=== PATIENT | male | born 1980 | race Caucasian/White ===

== ENCOUNTER 2018-08-31 19:47 | Emergency (ER) | payer BC, OTHER ==
[2018-08-31 20:02] VITALS: BP 131/82
[2018-08-31 20:27] LABS: Influenza A Molecular POSITIVE (Negative)
--- NOTE | 2018-08-31 20:35 | UC ---
Throat Pain/Nasal Gregory HPI - HPI Summary HPI Summary: Patient presents to urgent care with 14 days of body aches, fevers, congestion, cough with green sputum. 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 Patient has not taken anything first fever or symptoms because he thought his body needed a "fight" patient's son was diagnosed with flu last week. Patient states he's been very fatigued. Patient states he is here because the coughing is getting worse. Patient without any nausea vomiting. Decreased appetite. No diarrhea. No rash. Patient's medications reviewed this visit. Patient is not immunocompromised. - History of Current Complaint Chief Complaint: UCRespiratory Stated Complaint: CONGESTED,FEVER Time Seen by Provider: 08/31/18 20:26 Hx Obtained From: Patient Severity: Mild Pain Intensity: 0 - Allergies/Home Medications Allergies/Adverse Reactions: Allergies Allergy/AdvReac Type Severity Reaction Status Date / Time ENVIRONMENTAL Allergy Unknown Uncoded 08/31/18 20:04 Reaction Details Home Medications: Home Medications Fluticasone NASAL SPRAY 50MCG* [Flonase NASAL SPRAY 50MCG*] 1 spray BOTH NARES DAILY PRN 08/31/18 [History Confirmed 08/31/18] PMH/Surg Hx/FS Hx/Imm Hx Previously Healthy: Yes - Surgical History Surgical History: Yes Surgery Procedure, Year, and Place: APPENDECTOMY; WISDOM TEETH; VASECTOMY; deviated septum - Family History Known Family History: Positive: Other - son with + flu - Social History Occupation: Employed Full-time Lives: With Family Alcohol Use: Rare Substance Use Type: Marijuana Substance Use Comment - Amount & Last Used: occasional Smoking Status (MU): Heavy Every Day Tobacco Smoker Review of Systems All Other Systems Reviewed And Are Negative: Yes Constitutional: Positive: Fever, Fatigue Skin: Positive: Negative Eyes: Positive: Negative ENT: Positive: Nasal Discharge, Sinus Congestion, Sinus Pain/Tenderness Respiratory: Positive: Cough, Other - wheeze Physical Exam - Summary Physical Exam Summary: Vital Signs Reviewed: Yes A+Ox3, no distress, tired appearing Eyes: Conjunctiva Clear, ALONZO. EOM intact and full ENT: Hearing grossly normal TM x 2 clear, turbinates inflammed and boggy + PND , mmoist, uvula midline, no exudate, no erythema Neck: Positive: Supple Respiratory: Positive: No respiratory distress, No accessory muscle use + diffuse wheeze, coarse cough Cardiovascular: RRR nl s1, s2 no m/r CBT <2 sec abd soft + BS no guarding, no rebound Musculoskeletal Exam: LOVELACE x 4 without difficulty Strength Intact, ROM Intact Neurological: Positive: Alert, + sensation throughout Psychological: Positive: Normal Response To Family Skin: Positive: no rash, no ecchymosis Triage Information Reviewed: Yes Vital Signs: Initial Vital Signs Temp 99.0 F 08/31/18 19:57 Pulse 86 08/31/18 19:57 Resp 18 08/31/18 19:57 BP 131/82 08/31/18 19:57 Pulse Ox 97 08/31/18 19:57 Re-Evaluation - Re-Evaluation First Eval Change: Improved - Pt lung sounds improed following neb feels better will start augmentin pt has nebulizer machine at home - gave meds and tubing work nte Throat Pain/Nasal Course/Dx - Course Course Of Treatment: Patient presents to urgent care with 14 days of progressive cough congestion and wheeze. Patient's on diagnosed with influenza. On exam vital signs are stable. Patient tired appearing with diffuse rhonchi and coarse cough. We'll give patient a nebulizer. Patient out of window for for Tamiflu. Concern the patient may have a developing bronchitis or pneumonia given his extensive history of smoking Will start patient on antibiotics. Discussed with patient secretion precaution, humidified air. Motrin Tylenol. Patient comfortable agreement with plan we'll give a DuoNeb. Reassess - Differential Dx/Diagnosis Provider Diagnosis: Acute bronchitis, Influenza A Discharge - Sign-Out/Discharge Documenting (check all that apply): Patient Departure All imaging exams completed and their final reports reviewed: No Studies - Discharge Plan Condition: Stable Disposition: HOME Prescriptions: Albuterol 2.5MG/3ML (0.083%)* [Ventolin 2.5 MG/3 ML NEB.ANNE*] 2.5 mg INH Q4H # 30 neb.anne Amoxicillin/Clavulanate TAB* [Augmentin TAB 875*] 875 mg PO BID #19 tab Patient Education Materials: Influenza (ED), Acute Bronchitis (ED) Forms: *Gen. Provider Communication, *Work Release Referrals: No Primary Care Phys,NOPCP [Primary Care Provider] - Additional Instructions: - Stay well hydrated. Drink plenty of non-alcoholic, non-caffinated beverages. - Alternate ibuprofen (Advil, Motrin) 600mg and Tylenol every 3 hours for pain or fever. Take with food. Do NOT take for more than 4-5 days. - These infections are spread by secretions - do NOT share eating or drinking utensils - clean items you share with other people such as cell phones, computer mouse, TV remote, computer tablets,etc. Once you have been on antibiotics for 2 days, change your toothbrush and your pillowcase. - get plenty of restful sleep - humidify the air in the room where you sleep - boil water, run a hot steam shower, vaporizer, cups of water by heat register - okay to take over the counter decongestant and cough medication - use the nebulizer every 4 hours today and tomorrow, then as needed - work to decrease cigarette smoke - contact your doctor or return with questions or concerns - Billing Disposition and Condition Condition: STABLE Disposition: Home
[2018-08-31] MEDS ORDERED: Albuterol/Ipratropium NEB.SOL* Albuterol 2.5 MG/Ipratropium 0.5 MG 3 ML INH ONE (20:43)
[2018-08-31] MEDS ORDERED: Acetaminophen TAB* 325 MG PO ONE (20:43)
[2018-08-31] MEDS ORDERED: Amoxicillin/Clavulanate TAB* 875 MG PO ONE (21:01)
[2018-08-31] MEDS ORDERED: Albuterol 2.5 MG/3 ML NEB.SOL* (0.083%) INH ONE (21:02)
== END 2018-08-31 21:00 | disposition home or self-care (01) ==
LOC: UCEAST 19:47
DX: J10.1 Influenza due to other identified influenza virus with other respiratory manifestations (principal); J20.9 Acute bronchitis, unspecified; F17.200 Nicotine dependence, unspecified, uncomplicated; Z91.09 Other allergy status, other than to drugs and biological substances
CPT/HCPCS: 99213; A9270-GY; G0463

== ENCOUNTER 2018-09-26 13:16 | Emergency (ER) | payer BC ==
[2018-09-26] MEDS ORDERED: Tetan/Diph/Pertus SYR(Tdap)* 0.5 ML SYR(BOOSTRIX) use SYR IM ONE (13:30)
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
[2018-09-26] MEDS ORDERED: Tetracaine 0.5% OPTH.SOL 15ML* BTL BOTH EYES ONE (14:07)
[2018-09-26] MEDS ORDERED: Tetracaine 0.5% OPTH.SOL 4 ML* 1 DROP BTL ONE (14:09)
[2018-09-26 14:39] VITALS: BP 130/86
== END 2018-09-26 14:37 | disposition short-term general hospital (02) ==
LOC: ED 13:16
DX: T26.12XA Burn of cornea and conjunctival sac, left eye, initial encounter (principal); T26.11XA Burn of cornea and conjunctival sac, right eye, initial encounter; X08.8XXA Exposure to other specified smoke, fire and flames, initial encounter; Y92.9 Unspecified place or not applicable; Z23 Encounter for immunization; Z91.048 Other nonmedicinal substance allergy status; F17.200 Nicotine dependence, unspecified, uncomplicated
CPT/HCPCS: 90471; 90715; 99284; A9270-GY

== ENCOUNTER 2019-04-30 21:03 | Emergency (ER) | payer BC, OTHER ==
[2019-04-30 21:25] VITALS: BP 149/40
[2019-04-30] MEDS ORDERED: Cephalexin CAP* 500 MG PO ONE (21:41)
--- NOTE | 2019-04-30 21:41 | UC ---
Throat Pain/Nasal Gregory HPI - HPI Summary HPI Summary: The patient is a 38-year-old male with severe sore throat fever and chills 2 days. He had mild symptoms for a few days preceding the onset of his severe symptoms. He states he gets strep throat often. He is currently staying with his mom who is on chemotherapy. He has had no nausea vomiting or diarrhea. He denies any headache or myalgias. - History of Current Complaint Chief Complaint: UCGeneralIllness Stated Complaint: SORE THROAT Time Seen by Provider: 04/30/19 21:04 Hx Obtained From: Patient Onset/Duration: Gradual Onset, Lasting Hours Severity: Moderate Pain Intensity: 6 Pain Scale Used: 0-10 Numeric Cough: None - Allergies/Home Medications Allergies/Adverse Reactions: Allergies Allergy/AdvReac Type Severity Reaction Status Date / Time ENVIRONMENTAL Allergy Unknown Uncoded 09/26/18 14:04 Reaction Details PMH/Surg Hx/FS Hx/Imm Hx Previously Healthy: Yes - Surgical History Surgical History: Yes Surgery Procedure, Year, and Place: APPENDECTOMY; WISDOM TEETH; VASECTOMY; deviated septum - Family History Known Family History: Positive: Cardiac Disease, Hypertension, Other - son with + flu - Social History Alcohol Use: Occasionally Substance Use Type: Marijuana Substance Use Comment - Amount & Last Used: occasional Smoking Status (MU): Heavy Every Day Tobacco Smoker Review of Systems All Other Systems Reviewed And Are Negative: Yes Constitutional: Positive: Fever, Chills Skin: Positive: Negative Eyes: Positive: Negative ENT: Positive: Sore Throat Respiratory: Positive: Negative Cardiovascular: Positive: Negative Gastrointestinal: Positive: Negative Genitourinary: Positive: Negative Motor: Positive: Negative Neurovascular: Positive: Negative Musculoskeletal: Positive: Negative Neurological: Positive: Negative Psychological: Positive: Negative Physical Exam Triage Information Reviewed: Yes Appearance: Well-Appearing, No Pain Distress, Well-Nourished Vital Signs: Initial Vital Signs Temp 99.8 F 04/30/19 21:16 Pulse 104 04/30/19 21:16 Resp 18 04/30/19 21:16 BP 149/40 04/30/19 21:16 Pulse Ox 99 04/30/19 21:16 Vital Signs Reviewed: Yes Eyes: Positive: Conjunctiva Clear ENT: Positive: Hearing grossly normal, Pharyngeal erythema, TMs normal, Tonsillar swelling. Negative: Tonsillar exudate Neck: Positive: Supple, Nontender, Enlarged Nodes @ - L>R ant cervical Respiratory: Positive: Lungs clear, Normal breath sounds, No respiratory distress, No accessory muscle use Cardiovascular: Positive: RRR, No Murmur Musculoskeletal: Positive: ROM Intact, No Edema Neurological: Positive: Alert Psychological Exam: Normal Skin Exam: Normal Throat Pain/Nasal Course/Dx - Course Course Of Treatment: strep (-) - Differential Dx/Diagnosis Provider Diagnosis: Acute tonsillitis, Elevated BP without diagnosis of hypertension Discharge ED - Sign-Out/Discharge Documenting (check all that apply): Patient Departure All imaging exams completed and their final reports reviewed: No Studies - Discharge Plan Condition: Stable Disposition: HOME Prescriptions: Cephalexin CAP* [Keflex CAP*] 500 mg PO BID #14 cap Patient Education Materials: Tonsillitis (ED) Referrals: [facility] [place] [facility] [Outside] (BP recheck in 2-12 weeks) Additional Instructions: blood work pending recheck for new or worsening symptoms or if not better in 4 days - Billing Disposition and Condition Condition: STABLE Disposition: Home
[2019-05-01 11:20] LABS: Hematocrit 46 % (42-52); Mean Corpuscular HGB Conc 34 g/dL (31-36); Mean Corpuscular Hemoglobin 32 pg (27-31); Mean Corpuscular Volume 92 fL (80-94); Mean Platelet Volume 7.9 fL (7.4-10.4); Platelet Count 373 10^3/uL (150-450); Red Blood Count 5.06 10^6 /uL (4.18-5.48); Red Cell Distribution Width 13 % (10-15)
[2019-05-01 11:55] LABS: ABS Basophils 0.1 10^3/ul (0-0.2); ABS Eosinophils 0.2 10^3/ul (0-0.6); ABS Lymphocytes 1.7 10^3/ul (1.0-4.8); ABS Monocytes 1.7 10^3/ul (0-0.8); ABS Neutrophils 13.2 10^3/ul (1.5-7.7); Eosinophil % 1.1 %; Lymphocyte % 10.3 %
--- NOTE | 2019-05-01 15:42 | UC ---
- Progress Note Progress Note: Due to elevated WBC, nurse to call patient and see if symptoms improving. If no improvement, should go to ER. -Fior Haro PAC Course/Dx - Diagnoses Provider Diagnoses: Acute tonsillitis, Elevated BP without diagnosis of hypertension Discharge ED - Sign-Out/Discharge Documenting (check all that apply): Patient Departure All imaging exams completed and their final reports reviewed: No Studies - Discharge Plan Condition: Stable Disposition: HOME Prescriptions: Cephalexin CAP* [Keflex CAP*] 500 mg PO BID #14 cap Patient Education Materials: Tonsillitis (ED) Referrals: [facility] [place] [facility] [Outside] (BP recheck in 2-12 weeks) Additional Instructions: blood work pending recheck for new or worsening symptoms or if not better in 4 days - Billing Disposition and Condition Condition: STABLE Disposition: Home
== END 2019-04-30 21:58 | disposition home or self-care (01) ==
LOC: UCEAST 21:03
DX: J03.90 Acute tonsillitis, unspecified (principal); F17.290 Nicotine dependence, other tobacco product, uncomplicated; R03.0 Elevated blood-pressure reading, without diagnosis of hypertension; Z91.09 Other allergy status, other than to drugs and biological substances
CPT/HCPCS: 36415; 85025; 86308; 87651; 99212; A9270-GY; G0463

== ENCOUNTER 2019-05-02 08:57 | Emergency (ER) | payer BC, OTHER ==
[2019-05-02] MEDS ORDERED: Ketorolac INJ* 30 MG/ML 1 ML VIAL IV ONE (09:34)
[2019-05-02] MEDS ORDERED: Dexamethasone IV* 4 MG/ML 1 ML (4 MG) IV SLOW PU ONE (09:34)
[2019-05-02] MEDS ORDERED: Clindamycin 600 MG/D5W BAG(*) 600 MG/50 ML BAG IV ONE (09:34)
[2019-05-02] MEDS ORDERED: NS 0.9% 1000 ML** 1,000 ML IV ONE (09:35)
--- NOTE | 2019-05-02 09:45 | ED ---
Throat Pain/Nasal Congestion - HPI Summary HPI Summary: Pt is a 38 yo otherwise healthy M smoker who presents with ongoing throat pain x 1 week. He was seen in urgent care 2 days ago and given Keflex. Labs also were drawn on the patient and yesterday due to his high white count, he was placed on a "double dose" of Keflex and told to come to ED for further evaluation. Pt continues to have pain but denies any difficulty swallowing. States he had difficulty swallowing over the past week, however now is only endorsing pain with swallowing. He denies any subjective fevers, however endorses sweats and chills. He denies any chest pain, cervical LAD, pain to the maxillary sinus bilaterally or any eye drainage. He has a history of strep throat and states this feels similar. No excess fatigue. No abdominal pain. No UA symptoms or back pain. - History of Current Complaint Chief Complaint: EDThroatPain Time Seen by Provider: 05/02/19 09:08 Hx Obtained From: Patient Onset/Duration: Sudden Onset Severity: Moderate Associated Signs And Symptoms: Negative: Dysphagia, FB Sensation, Drooling, Wheezing, Sinus Discomfort, Nasal Discharge - Epiglottits Risk Factors Epiglottis Risk Factors: Negative - Allergies/Home Medications Allergies/Adverse Reactions: Allergies Allergy/AdvReac Type Severity Reaction Status Date / Time ENVIRONMENTAL Allergy Unknown Uncoded 09/26/18 14:04 Reaction Details PMH/Surg Hx/FS Hx/Imm Hx Previously Healthy: Yes Endocrine/Hematology History: Denies: Hx Diabetes Cardiovascular History: Denies: Hx Hypertension, Hx Pacemaker/ICD History: Denies: Hx Dialysis, Hx Renal Disease Sensory History: Denies: Hx Contacts or Glasses, Hx Hearing Aid Opthamlomology History: Denies: Hx Contacts or Glasses Psychiatric History: Reports: Hx Anxiety - NO MEDICATION FOR, Hx Depression - NO MEDICATION FOR Denies: Hx Panic Disorder - Surgical History Surgery Procedure, Year, and Place: APPENDECTOMY; WISDOM TEETH; VASECTOMY; deviated septum Hx Anesthesia Reactions: No - Immunization History Hx Pertussis Vaccination: No Immunizations Up to Date: Yes Infectious Disease History: No Infectious Disease History: Denies: Traveled Outside the [place] in Last 30 Days - Family History Known Family History: Positive: Cardiac Disease, Hypertension, Other - son with + flu - Social History Occupation: Employed Full-time Lives: With Family Alcohol Use: Occasionally Hx Substance Use: Yes Substance Use Type: Reports: Marijuana Substance Use Comment - Amount & Last Used: occasional Hx Tobacco Use: Yes Smoking Status (MU): Heavy Every Day Tobacco Smoker Review of Systems Negative: Fever, Chills, Fatigue, Skin Diaphoresis Negative: Palpitations, Chest Pain Negative: Shortness Of Breath, Cough Genitourinary: Negative Positive: no symptoms reported, see HPI Negative: Arthralgia, Myalgia Psychological: Normal Negative: Anxious All Other Systems Reviewed And Are Negative: Yes Physical Exam Triage Information Reviewed: Yes Vital Signs On Initial Exam: Initial Vitals Temp Pulse Resp BP Pulse Ox 97.1 F 79 16 141/92 99 05/02/19 09:00 05/02/19 09:00 05/02/19 09:00 05/02/19 09:00 05/02/19 09:00 Vital Signs Reviewed: Yes Appearance: Positive: Well-Appearing, Well-Nourished Skin: Positive: Warm, Skin Color Reflects Adequate Perfusion Eyes: Positive: EOMI, ALONZO, Conjunctiva Clear ENT: Positive: Pharyngeal erythema, Tonsillar exudate - mild, Uvula midline. Negative: Hearing grossly normal, Nasal congestion, Nasal drainage, Tonsillar swelling, Hoarse voice, Dental tenderness, Sinus tenderness Neck: Positive: No Lymphadenopathy Respiratory/Lung Sounds: Positive: Clear to Auscultation. Negative: Breath Sounds Present, Decreased Breath Sounds, Rales, Rhonchi, Subcutaneous Emphysema , Stridor, Tracheal Deviation, Wheezes, Unable to speak in full sentences Cardiovascular: Positive: RRR, Pulses are Symmetrical in both Upper and Lower Extremities Musculoskeletal: Positive: Normal, Strength/ROM Intact Neurological: Positive: Alert, Oriented to Person Place, Time, Speech Normal Psychiatric: Positive: Affect/Mood Appropriate AVPU Assessment: Alert Procedures - Sedation Patient Received Moderate/Deep Sedation with Procedure: No Diagnostics - Vital Signs Vital Signs Temp Pulse Resp BP Pulse Ox 05/02/19 09:00 97.1 F 79 16 141/92 99 - Laboratory Result Diagrams: 05/02/19 09:32 05/02/19 09:32 Lab Statement: Any lab studies that have been ordered have been reviewed, and results considered in the medical decision making process. Re-Evaluation - Re-Evaluation First Eval Change: Improved - improved following medication EENT Course/Dx - Course Course Of Treatment: Physical examination, patient has pharyngeal erythema with small amount of tonsillar exudates. Airway patent. No evidence of mucus, posterior nasal drainage. No difficulty with swallowing, trismus, hot potato voice or enlarged uvula. Uvula is midline. No cervical LAD bilaterally. No masses or enlargements inside the mouth. Pt is a smoker. Labs obtained which show an elevated white count of 15,000. During the course, patient was given 1 L normal saline, 8 mg Decadron, 30 mg Toradol, clindamycin 600 mg IV. He will discontinue Keflex and begin to take Clindamycin 30mg QID and toradol at home. - Differential Diagnoses Differential Diagnoses: Other - Bacterial pharyngitis, viral pharyngitis, throat pain - Diagnoses Provider Diagnoses: Throat pain, Pharyngitis Discharge ED - Sign-Out/Discharge Documenting (check all that apply): Patient Departure - Discharge Plan Condition: Stable Disposition: HOME Prescriptions: Clindamycin Cap(NF) [Clindamycin Cap 300 mg Cap(NF)] 300 mg PO Q6H #28 cap Ketorolac TAB * [Toradol TAB *] 10 mg PO Q6H #16 tab Lidocaine 2% VISCOUS* [Xylocaine 2% Viscous*] 15 ml SWISH SPIT Q4H PRN #150 btl PRN Reason: Pain - Moderate Patient Education Materials: Pharyngitis (ED) Referrals: Mustapha Catalan MD [Medical Doctor] - No Primary Care Phys,NOPCP [Primary Care Provider] - Additional Instructions: You were seen in the Emergency Department for throat pain Follow up with ENT if symptoms worsen Tylenol and toradol for pain Tylenol 650mg three times daily Toradol four times daily for pain Lidocaine swish and spit after gargling - every 4 hours Cepacol tabs (over the counter) will help with pain If you develop any worsening or changing symptoms, please return to the ED Please follow up with your primary care provider in the next 2-3 days It was a pleasure taking care of you today - Billing Disposition and Condition Condition: STABLE Disposition: Home - Attestation Statements Provider Attestation: I was available for consult. This patient was seen by the GIORGIO. The patient was not presented to, seen by, or examined by me. -Ralph
[2019-05-02 09:48] LABS: Hematocrit 45 % (42-52); Hemoglobin 15.4 g/dL (14.0-18.0); Mean Corpuscular HGB Conc 34 g/dL (31-36); Mean Corpuscular Hemoglobin 32 pg (27-31); Mean Corpuscular Volume 93 fL (80-94); Mean Platelet Volume 7.2 fL (7.4-10.4); Platelet Count 315 10^3/uL (150-450); Red Blood Count 4.84 10^6 /uL (4.18-5.48); Red Cell Distribution Width 13 % (10-15); White Blood Count 15.2 10^3/uL (3.5-10.8)
[2019-05-02 09:50] LABS: ABS Basophils 0.1 10^3/ul (0-0.2); ABS Eosinophils 0.4 10^3/ul (0-0.6); ABS Lymphocytes 1.6 10^3/ul (1.0-4.8); ABS Monocytes 1.7 10^3/ul (0-0.8); ABS Neutrophils 11.4 10^3/ul (1.5-7.7); Eosinophil % 2.6 %; Lymphocyte % 10.2 %
[2019-05-02 10:12] LABS: Albumin/Globulin Ratio 1.1 (1-3); C Reactive Protein 71.63 mg/L (<8.01); Calcium 9.8 mg/dL (8.6-10.3); EGFR African American 101.2 (>60); EGFR Non-African American 83.6 (>60); Globulin 3.8 g/dL (2-4); Potassium 4.1 mmol/L (3.5-5.0); Total Bilirubin 0.4 mg/dL (0.2-1.0); Total Protein 7.8 g/dL (6.4-8.9)
[2019-05-02 12:06] VITALS: BP 140/80
--- NOTE | 2019-05-04 08:42 | ED ---
Imaging and Labs Follow Up Follow Up Type: Labs/Cultures Labs/Culture Result: Throat culture grew - H flu 2+ likely isolate from pharynx Pt called at 8:40a - no answer, left message If symptomatic - will likely tx with cipro - covering H. Flu Will await call back or call tomorrow to follow up Patient Communication/Plan: called pt Patient Communication/Plan: Called patient - awaiting call back Provider Diagnoses: Throat pain, Pharyngitis
== END 2019-05-02 12:00 | disposition home or self-care (01) ==
LOC: ED 08:57
DX: J02.9 Acute pharyngitis, unspecified (principal); F41.9 Anxiety disorder, unspecified; F17.200 Nicotine dependence, unspecified, uncomplicated
CPT/HCPCS: 36415; 80053; 83605; 85025; 86140; 86308; 87040; 87070; 87077; 87185; 96365; 96375; 99283; J1100; J1885

== ENCOUNTER 2019-05-04 19:39 | Emergency (ER) | payer BC ==
[2019-05-04] MEDS ORDERED: predniSONE TAB* 20 MG PO ONE (20:09)
[2019-05-04] MEDS ORDERED: Amoxicillin/Clavulanate TAB* 875 MG PO ONE (20:29)
--- NOTE | 2019-05-04 21:38 | ED ---
Throat Pain/Nasal Congestion - HPI Summary HPI Summary: Patient complains of throat pain 2 weeks. Patient initially seen at [facility] week ago placed on Keflex with no subsequent improvement in symptoms. Patient seen at this ER 2 days ago, started on clindamycin, Decadron , toradol, and viscous lidocaine. Patient states still no improvement in symptoms. Throat culture positive for H flu. Denies fever, cough, CP, SOB, N/V /D, abdominal pain, change in urine, change in BM. Tolerating by mouth fluids. - History of Current Complaint Chief Complaint: EDThroatPain Time Seen by Provider: 05/04/19 19:53 Hx Obtained From: Patient Onset/Duration: Gradual Onset, Lasting Weeks Severity: Moderate Associated Signs And Symptoms: Positive: Dysphagia Cough: None - Allergies/Home Medications Allergies/Adverse Reactions: Allergies Allergy/AdvReac Type Severity Reaction Status Date / Time ENVIRONMENTAL Allergy Unknown Uncoded 09/26/18 14:04 Reaction Details PMH/Surg Hx/FS Hx/Imm Hx Endocrine/Hematology History: Denies: Hx Diabetes Cardiovascular History: Denies: Hx Hypertension, Hx Pacemaker/ICD History: Denies: Hx Dialysis, Hx Renal Disease Sensory History: Denies: Hx Contacts or Glasses, Hx Hearing Aid Opthamlomology History: Denies: Hx Contacts or Glasses EENT History: Denies: Hx Deafness Neurological History: Denies: Hx Dementia Psychiatric History: Reports: Hx Anxiety - NO MEDICATION FOR, Hx Depression - NO MEDICATION FOR Denies: Hx Panic Disorder - Surgical History Surgery Procedure, Year, and Place: APPENDECTOMY; WISDOM TEETH; VASECTOMY; deviated septum Hx Anesthesia Reactions: No Infectious Disease History: No Infectious Disease History: Denies: Traveled Outside the [place] in Last 30 Days - Family History Known Family History: Positive: Cardiac Disease, Hypertension, Other - son with + flu - Social History Alcohol Use: Occasionally Hx Substance Use: Yes Substance Use Type: Reports: Marijuana Substance Use Comment - Amount & Last Used: occasional Hx Tobacco Use: Yes Smoking Status (MU): Heavy Every Day Tobacco Smoker Review of Systems Constitutional: Negative Eyes: Negative Positive: Sore Throat Cardiovascular: Negative Respiratory: Negative Gastrointestinal: Negative Genitourinary: Negative Musculoskeletal: Negative Skin: Negative Neurological: Negative Psychological: Normal All Other Systems Reviewed And Are Negative: Yes Physical Exam Triage Information Reviewed: Yes Vital Signs On Initial Exam: Initial Vitals Temp Pulse Resp BP Pulse Ox 98.5 F 78 18 157/104 99 05/04/19 19:41 05/04/19 19:41 05/04/19 19:41 05/04/19 19:41 05/04/19 19:41 Vital Signs Reviewed: Yes Appearance: Positive: Well-Appearing Skin: Positive: Warm Head/Face: Positive: Normal Head/Face Inspection Eyes: Positive: Normal ENT: Positive: Normal ENT inspection Neck: Positive: Supple Respiratory/Lung Sounds: Positive: Clear to Auscultation Cardiovascular: Positive: Normal Abdomen Description: Positive: Nontender Musculoskeletal: Positive: Normal Neurological: Positive: Normal Psychiatric: Positive: Normal AVPU Assessment: Alert - [place] Coma Scale Best Eye Response: 4 - Spontaneous Best Motor Response: 6 - Obeys Commands Best Verbal Response: 5 - Oriented Coma Scale Total: 15 Procedures - Sedation Patient Received Moderate/Deep Sedation with Procedure: No Diagnostics - Vital Signs Vital Signs Temp Pulse Resp BP Pulse Ox 05/04/19 19:41 98.5 F 78 18 157/104 99 - Laboratory Result Diagrams: 05/04/19 21:54 05/04/19 21:54 Lab Statement: Any lab studies that have been ordered have been reviewed, and results considered in the medical decision making process. EENT Course/Dx - Course Course Of Treatment: Patient complains of throat pain 2 weeks. Patient initially seen at [facility] week ago placed on Keflex with no subsequent improvement in symptoms. Patient seen at this ER 2 days ago, started on clindamycin, Decadron, toradol, and viscous lidocaine. Patient states still no improvement in symptoms. Throat culture positive for H flu. Denies fever, cough, CP, SOB, N/V/D, abdominal pain, change in urine, change in BM. Tolerating by mouth fluids. Vital signs within normal limits. Neck x-ray negative for epiglottitis. Patient started on Augmentin to replace clindamycin , prednisone by mouth 5 days. Patient advised if symptoms do not improve by Tuesday to call ENT. - Diagnoses Provider Diagnoses: Pharyngitis Discharge ED - Sign-Out/Discharge Documenting (check all that apply): Patient Departure - Discharge Plan Condition: Stable Disposition: HOME Prescriptions: Amoxicillin/Clavulanate TAB* [Augmentin TAB 875*] 875 mg PO BID #20 tab Lidocaine 2% VISCOUS* [Xylocaine 2% Viscous*] 15 ml SWISH SPIT Q6H PRN #1 btl PRN Reason: pain predniSONE TAB* [Deltasone 20 MG TAB*] 40 mg PO DAILY 5 Days #10 tab Patient Education Materials: Pharyngitis (ED) Referrals: No Primary Care Phys,NOPCP [Primary Care Provider] - Trae Mejía MD [Medical Doctor] - Additional Instructions: Take prednisone as directed. Take Augmentin as directed. Follow-up with ear nose and throat Dr Mejía on tuesday for further evaluation. - Billing Disposition and Condition Condition: STABLE Disposition: Home
[2019-05-04 22:01] LABS: ABS Basophils 0.2 10^3/ul (0-0.2); ABS Eosinophils 0.4 10^3/ul (0-0.6); ABS Lymphocytes 1.7 10^3/ul (1.0-4.8); ABS Monocytes 1.1 10^3/ul (0-0.8); ABS Neutrophils 10.2 10^3/ul (1.5-7.7); Eosinophil % 2.6 %; Hematocrit 41 % (42-52); Hemoglobin 13.9 g/dL (14.0-18.0); Lymphocyte % 12.8 %; Mean Corpuscular HGB Conc 34 g/dL (31-36); Mean Corpuscular Hemoglobin 31 pg (27-31); Mean Corpuscular Volume 92 fL (80-94); Mean Platelet Volume 6.7 fL (7.4-10.4); Platelet Count 356 10^3/uL (150-450); Red Blood Count 4.49 10^6 /uL (4.18-5.48); Red Cell Distribution Width 13 % (10-15); White Blood Count 13.5 10^3/uL (3.5-10.8)
[2019-05-04 22:17] LABS: Albumin 4.1 g/dL (3.2-5.2); Albumin/Globulin Ratio 1.1 (1-3); BUN/Creatinine Ratio 12.5 (8-20); C Reactive Protein 25.6 mg/L (<8.01); Calcium 9.9 mg/dL (8.6-10.3); EGFR Non-African American 67.8 (>60); Globulin 3.7 g/dL (2-4); Potassium 4.1 mmol/L (3.5-5.0); Total Bilirubin 0.3 mg/dL (0.2-1.0); Total Protein 7.8 g/dL (6.4-8.9)
[2019-05-04 23:26] VITALS: BP 157/98
--- NOTE | 2019-05-05 09:42 | ED ---
Imaging and Labs Follow Up Follow Up Type: Labs/Cultures Labs/Culture Result: throat culture positive for haemophilus influenzae Patient Communication/Plan: patient placed on augmentin which should be sensitive. no further action required. Provider Diagnoses: Pharyngitis
== END 2019-05-04 23:15 | disposition home or self-care (01) ==
LOC: ED 19:39
DX: J02.9 Acute pharyngitis, unspecified (principal); F41.9 Anxiety disorder, unspecified; F32.9 Major depressive disorder, single episode, unspecified; F17.200 Nicotine dependence, unspecified, uncomplicated
CPT/HCPCS: 36415; 70360; 80053; 85025; 86140; 99282; A9270-GY; J7512